=== PATIENT | female | born 1985 | race African-American/Black ===

== ENCOUNTER 2019-09-30 01:27 | Emergency (ER) | payer OTHER ==
[~2019-09-30] VITALS: Ht 154.9 cm; Wt 81.7 kg
[~2019-09-30 01:27] MED LIST: CEFTIN 250 MG250 MG PO; HYDROXYCHLOROQ200 M1 PO; PERCOCET PO; TAMSULOSIN HCL0.4 MG PO; TYLENOL325 MG PO; ULTRAM 50MG TAB50 MG PO
[2019-09-30] MEDS ORDERED: PRENA1 CHEW TA1.4 MG PO (01:57)
[2019-09-30 03:10] LABS: BASOPHILS 0.6 % (0.0-2.0); EOSINOPHILS 0.7 % (0.0-3.0); HEMATOCRIT 34.5 % (37.0-47.0); HEMOGLOBIN 11.5 gm/dL (12.0-15.0); LYMPHOCYTES 32.2 % (24.0-44.0); MCH 31.9 pg (26.0-34.0); MCHC 33.3 g/dL (28.0-37.0); MCV 95.6 fL (80.0-100.0); MONOCYTES 6.7 % (1.0-8.0); PLATELET COUNT 276 thou/uL (150-400); POLYS 59.8 % (36.0-66.0); RBC 3.61 mil/uL (4.20-5.00); RDW 12.4 % (10.5-14.5); WBC 6.7 thou/uL (4.0-11.0)
[2019-09-30 03:13] LABS: CALCIUM 8.6 mg/dL (8.5-10.1); CREATININE 0.6 mg/dL (0.6-1.0); POTASSIUM 3.7 mmol/L (3.5-5.1)
[2019-09-30 03:38] LABS: URINE BILIRUBIN NEGATIVE (Negative); URINE BLOOD NEGATIVE (Negative); URINE CLARITY CLEAR; URINE COLOR YELLOW; URINE GLUCOSE-RANDOM* NEGATIVE (Negative); URINE KETONES NEGATIVE (Negative); URINE LEUKOCYTES-REFLEX NEGATIVE (Negative); URINE NITRITE-REFLEX NEGATIVE (Negative); URINE PROTEIN (DIPSTICK) NEGATIVE (Negative); URINE SPECIFIC GRAVITY <= 1.005 (1.005-1.035); URINE UROBILINOGEN 0.2 E.U./dl (0.2-1.0)
[2019-09-30 04:28] VITALS: BP 147/82
== END 2019-09-30 04:29 | disposition home or self-care (01) ==
LOC: ER 01:27
PROVIDERS: Emergency Medicine
DX: O26.892 Other specified pregnancy related conditions, second trimester (principal); R10.9 Unspecified abdominal pain; R10.2 Pelvic and perineal pain; M54.2 Cervicalgia; O99.89 Other specified diseases and conditions complicating pregnancy, childbirth and the puerperium; M81.0 Age-related osteoporosis without current pathological fracture; O99.332 Smoking (tobacco) complicating pregnancy, second trimester; F17.210 Nicotine dependence, cigarettes, uncomplicated; Z3A.14 14 weeks gestation of pregnancy; Z79.899 Other long term (current) drug therapy; Z88.8 Allergy status to other drugs, medicaments and biological substances; Z88.5 Allergy status to narcotic agent

== ENCOUNTER 2020-10-29 23:46 | Emergency (ER) | payer OTHER ==
[~2020-10-29] VITALS: Ht 154.9 cm; Wt 80.7 kg
[~2020-10-29 23:46] MED LIST changes: +PRENA1 CHEW TA1.4 MG PO
[2020-10-29] MEDS ORDERED: ADVIL200 M1 PO (23:55)
[2020-10-30] MEDS ORDERED: NORVASC 2.5 MG2.5 M1 PO (02:23)
[2020-10-30 02:25] VITALS: BP 187/94
== END 2020-10-30 02:25 | disposition home or self-care (01) ==
LOC: ER 23:46
DX: Z77.098 Contact with and (suspected) exposure to other hazardous, chiefly nonmedicinal, chemicals (principal); M79.642 Pain in left hand; M79.641 Pain in right hand; R07.89 Other chest pain; I10 Essential (primary) hypertension; H57.89 Other specified disorders of eye and adnexa; F17.210 Nicotine dependence, cigarettes, uncomplicated; M81.0 Age-related osteoporosis without current pathological fracture; Z79.899 Other long term (current) drug therapy; Z88.6 Allergy status to analgesic agent; Z88.1 Allergy status to other antibiotic agents